=== PATIENT | male | born 1955 | race Caucasian/White ===

== ENCOUNTER 2024-12-22 13:53 | Emergency (ER) | payer MEDICAID ==
[~2024-12-22] VITALS: Ht 177.8 cm; Wt 104.0 kg
[2024-12-22 13:57] VITALS: O2SAT 99
[2024-12-22] MEDS: SODIUM CHLORIDE 0.9% 1,000 ML IV ONE ×2 (14:38→14:49)
[2024-12-22] MEDS: LIDOCAINE HCL 1% 20ML VIAL INFIL ONE ×2 (14:38→15:29)
[2024-12-22] MEDS: CEFAZOLIN 2GM/100ML 100 ML IV STA ×2 (14:39→15:26)
[2024-12-22] MEDS: MORPHINE SULFATE 4 MG/ML INJ (FOR IV/IM USE) IV STA (14:39)
[2024-12-22] MEDS: MORPHINE SULFATE 4 MG/ML INJ (FOR IV/IM USE) IV ONE (15:06)
[2024-12-22] MEDS: TETANUS, DIPHTHERIA, PERTUSSIS VAC/PF 0.5ML (>10YR OLD) IM ONE (15:07)
[2024-12-22 15:24] LABS: BASOPHILS % 0.7 % (0.0-2.0); EOSINOPHILS % 2.1 % (0.0-5.0); HEMATOCRIT. 42.3 % (42.0-52.0); HEMOGLOBIN. 14.1 g/dL (14.0-18.0); LYMPHOCYTES % 26.6 % (20.0-50.0); MEAN CORPUSCULAR HEMOGLOBIN 31.9 pg (28.0-32.0); MEAN CORPUSCULAR HGB CONC 33.2 g/dL (31.0-37.0); MEAN CORPUSCULAR VOLUME 95.9 fL (80.0-94.0); MONOCYTES % 9.1 % (2.0-8.0); NEUTROPHILS % 61.5 % (40.0-76.0); PLATELET 179 x1000/uL (130-400); RED BLOOD CELL COUNT 4.41 mill/uL (4.7-6.1); RED CELL DISTRIBUTION WIDTH 13.5 % (11.6-14.6); WHITE BLOOD COUNT 7.9 x1000/uL (4.5-11.0)
[2024-12-22 15:32] LABS: CHLORIDE 105 mEq/L (98-107); POTASSIUM 3.1 mEq/L (3.5-5.1); SODIUM 141 mEq/L (136-145)
[2024-12-22 15:33] LABS: CARBON DIOXIDE 29 mEq/L (21-32)
[2024-12-22 15:34] LABS: CALCIUM 9.6 mg/dL (8.7-10.4)
[2024-12-22 15:35] LABS: PROTHROMBIN TIME 10.9 sec (9.6-11.0)
[2024-12-22 15:38] LABS: CREATININE 0.8 mg/dL (0.6-1.3); GLUCOSE 90 mg/dL (70-105); UREA NITROGEN BLOOD 17 mg/dL (9-23)
[2024-12-22 16:54] VITALS: BP 139/81; PULSE 65; RESP 16; TEMP 37; O2SAT 100
== END 2024-12-22 17:55 | disposition short-term general hospital (02) ==
LOC: ER 13:53
DX: S68.0 Traumatic metacarpophalangeal amputation of thumb (principal); I10 Essential (primary) hypertension; W31.9XXA Contact with unspecified machinery, initial encounter; Y93.89 Activity, other specified; Y92.89 Other specified places as the place of occurrence of the external cause; Y99.8 Other external cause status
CPT/HCPCS: 99285; 96365; 96361; 96375; 80048; 85025; 85610; 86850; 86900; 86901; 36415; 73130; 90715; 90471; J0690; J3490; J2270; J7030; 99284